=== PATIENT | male | born 1950 | race African-American/Black ===

== ENCOUNTER 2017-03-10 08:39 | Inpatient (IN) | payer OTHER, MEDICARE ==
[~2017-03-10] VITALS: Ht 175.3 cm; Wt 80.5 kg
[~2017-03-10 08:39] MED LIST: HYDR-2768 PO; POTA-243 PO
[2017-03-10 08:41] VITALS: BP 161/88; PULSE 95; RESP 20; TEMP 98.2; O2SAT 93
[2017-03-10 09:10] VITALS: BP 163/86; PULSE 80; RESP 17; TEMP 98; O2SAT 95
[2017-03-10] MEDS ORDERED: SODIUM CHLOR 0.9% 1000 ML INJ 1,000 ML IV SCH (09:14)
[2017-03-10] MEDS ORDERED: SODIUM CHLORIDE 0.9% FLUSH 10 ML FLUSH IV FLUSH PRN ×2 (09:15→13:00)
--- NOTE | 2017-03-10 09:51 | PD ---
HPI Chief Complaint: GI Complaint Time Seen by Provider: 09:14 Travel History International Travel<30 days: No Contact w/Intl Traveler<30days: No Traveled to known affect area: No History of Present Illness HPI 66 year old male presenting with watery diarrhea x 3 days. He also has some fecal incontinence at night. Associated symptoms include mild nausea, headache, weakness, and occasional dysuria. He denies fever, vomiting, blood in the stool , melena, abdominal pain. He takes Metformin for DM, HCTZ for HTN, and started taking a statin last week for hypercholesterolemia. No sick contacts with similar symptoms. PFSH Past Medical History Arthritis: Yes High Cholesterol: Yes Diabetes: Yes Patient Takes Glucophage: No Diminished Hearing: No Hypertension: Yes Respiratory: Yes (BRONCHITIS) Past Surgical History Abdominal Surgery: Yes (bladder surgery?) Social History Alcohol Use: Yes ("every now and then") Tobacco Use: No Substance Use: No Allergies-Medications (Allergen,Severity, Reaction): Coded Allergies: No Known Allergies (Verified , 03/10/17) Reported Meds & Prescriptions Reported Meds & Active Scripts Active Reported Flomax (Tamsulosin HCl) 0.4 Mg Cap 0.4 Mg PO HS Zoloft (Sertraline HCl) 50 Mg Tab 50 Mg PO DAILY Lasix (Furosemide) 40 Mg Tab 40 Mg PO DAILY Lisinopril 20 Mg Tab 20 Mg PO DAILY Gabapentin 300 Mg Cap 300 Mg PO TID Lipitor (Atorvastatin Calcium) 80 Mg Tab 80 Mg PO DAILY PRN Metformin HCTZ Review of Systems Except as stated in HPI: all other systems reviewed are Neg General / Constitutional: No: Fever, Chills HENT: Positive: Headaches Cardiovascular: No: Chest Pain or Discomfort Respiratory: No: Cough, Shortness of Breath Gastrointestinal: Positive: Nausea, Diarrhea, No: Vomiting, Abdominal Pain, Hematemesis, Hematochezia, Constipation Genitourinary: Positive: Dysuria Musculoskeletal: No: Pain Skin: No Rash Neurologic: Positive: Weakness Physical Exam Narrative GENERAL: WD/WN in nad. SKIN: Warm and dry. Skin tenting on hands. HEAD: Atraumatic. Normocephalic. EYES: Pupils equal and round. No scleral icterus. No injection or drainage. ENT: No nasal bleeding or discharge. Mucous membranes pink and moist. NECK: Trachea midline. No JVD. CARDIOVASCULAR: Regular rate and rhythm. RESPIRATORY: No accessory muscle use. Clear to auscultation. Breath sounds equal bilaterally. GASTROINTESTINAL: Abdomen soft, non-tender, nondistended. Hepatic and splenic margins not palpable. MUSCULOSKELETAL: Extremities without clubbing, cyanosis, or edema. No obvious deformities. NEUROLOGICAL: Awake and alert. No obvious cranial nerve deficits. Motor grossly within normal limits. Five out of 5 muscle strength in the arms and legs. Normal speech. PSYCHIATRIC: Appropriate mood and affect; insight and judgment normal. Data Data Last Documented VS Vital Signs Date Time Temp Pulse Resp B/P Pulse Ox O2 Delivery O2 Flow Rate FiO2 03/10/17 11:50 81 153/88 03/10/17 09:10 98.0 17 95 Room Air Orders Complete Blood Count With Diff (03/10/17 09:14) Comprehensive Metabolic Panel (03/10/17 09:14) Iv Access Insert/Monitor (03/10/17 09:14) Ecg Monitoring (03/10/17 09:14) Oximetry (03/10/17 09:14) Sodium Chlor 0.9% 1000 Ml Inj (Ns 1000 M (03/10/17 09:14) Sodium Chloride 0.9% Flush (Ns Flush) (03/10/17 09:15) Electrocardiogram (03/10/17 09:19) Calcium Gluconate Inj (Calcium Gluconate (03/10/17 12:15) Admit To Inpatient (03/10/17 ) Vital Signs (Adult) Q4H (03/10/17 12:48) Activity Bed Rest With Brp (03/10/17 12:48) Bedside Glucose ADELINA.AC&HS (03/10/17 12:48) Intake + Output ADELINA.QSHIFT (03/10/17 12:48) Sodium Chlor 0.9% 1000 Ml Inj (Ns 1000 M (03/10/17 13:00) Sodium Chloride 0.9% Flush (Ns Flush) (03/10/17 13:00) Sodium Chloride 0.9% Flush (Ns Flush) (03/10/17 21:00) Acetaminophen (Tylenol) (03/10/17 13:00) Ondansetron Inj (Zofran Inj) (03/10/17 13:00) Temazepam (Restoril) (03/10/17 13:00) Basic Metabolic Panel (Bmp) (03/11/17 06:00) Complete Blood Count With Diff (03/11/17 06:00) Hepatic Functional Panel (03/11/17 06:00) Pt Request For Service (03/10/17 12:48) Heparin Inj (Heparin Inj) (03/10/17 14:00) Naloxone Inj (Narcan Inj) (03/10/17 13:00) Stool Wbc (Leukocytes) (03/10/17 12:48) C Diff Toxin Pcr (03/10/17 12:48) Rotavirus Ag Detection (Stool) (03/10/17 12:48) Occult Blood (Hemoccult) Stool (03/10/17 12:48) Specimen To Be Collected PRN (03/10/17 12:48) Enteric Path (Stool) (03/10/17 12:48) Isolation ADELINA.QSHIFT (03/10/17 12:48) Admit Order (Ed Use Only) (03/10/17 ) Labs Laboratory Tests Test 03/10/17 03/10/17 09:20 10:13 White Blood Count 6.0 TH/MM3 Red Blood Count 5.56 MIL/MM3 Hemoglobin 14.5 GM/DL Hematocrit 45.9 % Mean Corpuscular Volume 82.5 FL Mean Corpuscular Hemoglobin 26.0 PG Mean Corpuscular Hemoglobin 31.6 % Concent Red Cell Distribution Width 16.2 % Platelet Count 139 TH/MM3 Mean Platelet Volume 9.7 FL Neutrophils (%) (Auto) 53.9 % Lymphocytes (%) (Auto) 31.2 % Monocytes (%) (Auto) 11.2 % Eosinophils (%) (Auto) 3.3 % Basophils (%) (Auto) 0.4 % Neutrophils # (Auto) 3.3 TH/MM3 Lymphocytes # (Auto) 1.9 TH/MM3 Monocytes # (Auto) 0.7 TH/MM3 Eosinophils # (Auto) 0.2 TH/MM3 Basophils # (Auto) 0.0 TH/MM3 CBC Comment DIFF FINAL Differential Comment Sodium Level 138 MEQ/L Potassium Level 5.9 MEQ/L Chloride Level 108 MEQ/L Carbon Dioxide Level 24.3 MEQ/L Anion Gap 6 MEQ/L Blood Urea Nitrogen 34 MG/DL Creatinine 2.63 MG/DL Estimat Glomerular Filtration 30 ML/MIN Rate Random Glucose 95 MG/DL Calcium Level 8.3 MG/DL Total Bilirubin 0.6 MG/DL Aspartate Amino Transf 24 U/L (AST/SGOT) Alanine Aminotransferase 36 U/L (ALT/SGPT) Alkaline Phosphatase 86 U/L Total Protein 8.9 GM/DL Albumin 3.8 GM/DL [facility] Medical Decision Making Medical Screen Exam Complete: Yes Emergency Medical Condition: Yes Differential Diagnosis Dehydration and hyperkalemia, infectious diarrhea, medication diarrhea, acute kidney injury, acute abdomen excluded clinically. Narrative Course Patient roomed emergency department, laboratory workup significant for hypokalemia to 5.9, acute kidney injury with creatinine elevated, being 1 elevated, likely causes volume contraction, was given normal saline, EKG shows no changes consistent with hyperkalemia, was given calcium gluconate, will hold Kayexalate given he is having diarrhea and hydrate with IV saline and reassess as an observation patient. Discussed with hospitalist who agrees for admission. Diagnosis Primary Impression: Hyperkalemia Additional Impression: Acute kidney injury Admitting Information Admitting Physician Requests: Admit Condition: Stable Bruno Garcia MD Mar 10, 2017 09:51
[2017-03-10 09:54] LABS: AUTOMATED NEUTROPHIL # 3.3 TH/MM3 (1.8-7.7); BASOPHIL % 0.4 % (0.0-2.0); EOSINOPHIL # 0.2 TH/MM3 (0-0.4); EOSINOPHIL % 3.3 % (0.0-4.0); HEMATOCRIT 45.9 % (39.0-51.0); HEMO FLAGS DIFF FINAL; LYMPH % 31.2 % (9.0-44.0); LYMPHOCYTE # 1.9 TH/MM3 (1.0-4.8); MEAN CELL VOLUME 82.5 FL (80.0-100.0); MEAN CORPUSCULAR HGB CONC 31.6 % (32.0-36.0); MONO % 11.2 % (0.0-8.0); NEUT % 53.9 % (16.0-70.0); PLATELET COUNT 139 TH/MM3 (150-450); RED BLOOD COUNT 5.56 MIL/MM3 (4.50-5.90); RED CELL DISTRIBUTION WIDTH 16.2 % (11.6-17.2)
[2017-03-10 10:07] LABS: ALKALINE PHOSPHATASE 86 U/L (45-117); TOTAL BILIRUBIN ADULT 0.6 MG/DL (0.2-1.0)
[2017-03-10] MEDS ORDERED: LISI-515 PO (10:39)
[2017-03-10] MEDS ORDERED: TAMS5CAP PO (10:39)
[2017-03-10] MEDS ORDERED: GABA300C5 PO (10:39)
[2017-03-10] MEDS ORDERED: ZOLO50TA PO (10:39)
[2017-03-10] MEDS ORDERED: FURO1TAB60 PO (10:39)
[2017-03-10] MEDS ORDERED: LIPI80TA PO (10:39)
[2017-03-10 10:57] LABS: ANION GAP 6 MEQ/L (5-15); AST (GOT) 24 U/L (15-37); BICARBONATE 24.3 MEQ/L (21.0-32.0); BLOOD UREA NITROGEN 34 MG/DL (7-18); CHLORIDE 108 MEQ/L (98-107); GLOMERULAR FILTRATION RATE 30 ML/MIN (>89); POTASSIUM 5.9 MEQ/L (3.5-5.1); SODIUM (NA) 138 MEQ/L (136-145)
[2017-03-10 10:58] LABS: ALT (GPT) 36 U/L (12-78)
[2017-03-10 11:50] VITALS: BP 153/88; PULSE 81
[2017-03-10] MEDS ORDERED: CALCIUM GLUCONATE INJ 1 GM in DEXTROSE 5% IN WATER 100ML INJ 100 ML IV ONE ×2 (12:15)
--- NOTE | 2017-03-10 12:33 | EKG ---
Date Performed: 03/10/2017 Time Performed: 09:19:04 PTAGE: 66 years EKG: Sinus rhythm BORDERLINE LEFT AXIS DEVIATION NONSPECIFIC T-WAVE ABNORMALITY Compared to prior tracing no significa nt change BORDERLINE ECG PREVIOUS TRACING : 05/15/2012 14.20 DOCTOR: Ethan Patel Interpretating Date/Time 03/10/2017 12:32:04
[2017-03-10] MEDS ORDERED: ONDANSETRON HCL 4 MG/2 ML VIAL IVP PRN (13:00)
[2017-03-10] MEDS ORDERED: NALOXONE HCL 0.4 MG/ML AMP IV PRN (13:00)
[2017-03-10] MEDS: HEPARIN SODIUM - SQ 10,000 UNITS/ML VIAL SQ SCH ×2 (14:48→21:13)
[2017-03-10] MEDS: SODIUM CHLOR 0.9% 1000 ML INJ 1,000 ML IV SCH ×2 (14:49→21:00)
[2017-03-10 15:40] VITALS: BP 177/87; PULSE 80; RESP 20; TEMP 98.2; O2SAT 96
[2017-03-10 17:48] LABS: C. DIFF EPI 027 PRESUMPTIVE NEGATIVE (NEGATIVE); C. DIFF TOXIN PCR NEGATIVE (NEGATIVE)
[2017-03-10] MEDS: cloNIDine HCL 0.1 MG TAB PO PRN (18:04)
[2017-03-10] MEDS ORDERED: GLUCAGON 1 MG/ML VIAL OTHER PRN (18:15)
[2017-03-10] MEDS ORDERED: DEXTROSE 50% IN WATER 50 ML VIAL(D50) IV PRN (18:15)
--- NOTE | 2017-03-10 18:26 | HHI.HP ---
HPI Service [facility] Hospitalists Primary Care Physician Trever Mcgarry MD Admission Diagnosis Hyperkalemia, KRISTI Diagnoses: Chief Complaint: Diarrhea Weakness Nausea Travel History International Travel<30 Days: No Contact w/Intl Traveler <30 Da: No Traveled to Known Affected Are: No History of Present Illness This is a 66-year-old male with past medical history significant for hypertension, diabetes, chronic kidney disease stage III, dyslipidemia, BPH and osteoarthritis who presented to [facility] ED with complaints of three-day history of watery diarrhea, nausea and fatigue/weakness. Patient is somewhat of a poor historian and is not sure of the medications that he takes or the dosages. Patient denies any associated vomiting or abdominal pain. He reports 10+ episodes of diarrhea daily. Patient denies any blood or mucus in the stool. He also denies any dark or tarry stools. He endorses a good appetite. He reports some dysuria 56 days ago but this has resolved. Patient admits to confusion with his medications and is not sure if he's been taking his home medications as prescribed. He endorses eating 3-5 bananas daily for the past several days. He denies any fever or chills. He denies any chest pain or palpitations. He denies any shortness of breath. He denies any dietary changes. He denies any recent travel or ill contacts. Patient states that he has had 3 or 4 episodes in the past year where he has several days of watery diarrhea with associated nausea and vomiting. He has not been seen by a GI in the past. He currently sees Dr. Garcia for his CKD. In the ED, she was found to be hyperkalemic with a potassium level of 5.9. Creatinine is elevated at 2.63 and patient is unaware of his baseline creatinine. He is afebrile. C diff is negative. Review of Systems Except as stated in HPI: all other systems reviewed are Neg Past Family Social History Past Medical History Hypertension Diabetes Dyslipidemia Chronic kidney disease stage III Osteoarthritis BPH Past Surgical History ORIF left ankle fracture Bladder surgery Reported Medications Metformin HCTZ Lipitor 80mg po daily Flomax 0.4mg po daily Lisinopril 20mg po daily Gabapentin 300mg po TID Zoloft 50mg po daily Lasix 50mg po daily Allergies: Coded Allergies: No Known Allergies (Verified , 03/10/17) Active Ordered Medications Current Medications Medications (Trade) Dose Ordered Sig/Mikey Route Start Time Stop Time Status Last Admin (NS 1000 ml Inj) 1,000 ml @ 125 mls/hr Q8H IV 03/10/17 13:00 03/10/17 14:49 (NS Flush) 2 ml UNSCH PRN IV FLUSH 03/10/17 13:00 (NS Flush) 2 ml BID IV FLUSH 03/10/17 21:00 (Tylenol) 650 mg Q4H PRN PO 03/10/17 13:00 (Zofran Inj) 4 mg Q6H PRN IVP 03/10/17 13:00 (Restoril) 15 mg HS PRN PO 03/10/17 13:00 (Heparin Inj) 5,000 units Q8H SQ 03/10/17 14:00 03/10/17 14:48 (Narcan Inj) 0.4 mg UNSCH PRN IV 03/10/17 13:00 (Catapres) 0.1 mg Q6H PRN PO 03/10/17 17:45 Family History Diabetes Hypertension Brother, CAD, CABG Social History Patient has a history of tobacco use of a half pack per day for 20 years but quit 7 years ago. He reports occasional alcohol consumption. He denies any illicit drug use. Patient is single. Lives with his brother. He is retired from concrete work. Physical Exam Vital Signs Vital Signs Date Time Temp Pulse Resp B/P Pulse Ox O2 Delivery O2 Flow Rate FiO2 03/10/17 15:40 98.2 80 20 177/87 96 03/10/17 11:50 81 153/88 03/10/17 09:10 98.0 80 17 163/86 95 Room Air 03/10/17 08:41 98.2 95 20 161/88 93 Room Air Physical Exam GENERAL: This is a well-nourished, well-developed patient, in no apparent distress. Awake and alert. Sitting up in hospital bed. SKIN: No rashes, ecchymoses or lesions. Cool and dry. HEAD: Atraumatic. Normocephalic. No temporal or scalp tenderness. EYES: Pupils equal round and reactive. Extraocular motions intact. No scleral icterus. No injection or drainage. ENT: Nose without bleeding, purulent drainage or septal hematoma. Throat without erythema, tonsillar hypertrophy or exudate. Uvula midline. Airway patent. NECK: Trachea midline. No lymphadenopathy. Supple, nontender, no meningeal signs. CARDIOVASCULAR: Regular rate and rhythm without murmurs, gallops, or rubs. RESPIRATORY: Clear to auscultation. Breath sounds equal bilaterally. No wheezes , rales, or rhonchi. GASTROINTESTINAL: Abdomen soft, non-tender, nondistended. No hepato-splenomegaly , or palpable masses. No guarding. MUSCULOSKELETAL: Extremities without clubbing, cyanosis, or edema. No joint tenderness, effusion, or edema noted. No calf tenderness. NEUROLOGICAL: Awake and alert. Able to move all extremities. No focal neurologic deficit appreciated. Normal speech. Laboratory Laboratory Tests Test 03/10/17 03/10/17 03/10/17 09:20 10:13 16:00 White Blood Count 6.0 Red Blood Count 5.56 Hemoglobin 14.5 Hematocrit 45.9 Mean Corpuscular Volume 82.5 Mean Corpuscular Hemoglobin 26.0 Mean Corpuscular Hemoglobin 31.6 Concent Red Cell Distribution Width 16.2 Platelet Count 139 Mean Platelet Volume 9.7 Neutrophils (%) (Auto) 53.9 Lymphocytes (%) (Auto) 31.2 Monocytes (%) (Auto) 11.2 Eosinophils (%) (Auto) 3.3 Basophils (%) (Auto) 0.4 Neutrophils # (Auto) 3.3 Lymphocytes # (Auto) 1.9 Monocytes # (Auto) 0.7 Eosinophils # (Auto) 0.2 Basophils # (Auto) 0.0 CBC Comment DIFF FINAL Differential Comment Sodium Level 138 Potassium Level 5.9 Chloride Level 108 Carbon Dioxide Level 24.3 Anion Gap 6 Blood Urea Nitrogen 34 Creatinine 2.63 Estimat Glomerular Filtration 30 Rate Random Glucose 95 Calcium Level 8.3 Total Bilirubin 0.6 Aspartate Amino Transf 24 (AST/SGOT) Alanine Aminotransferase 36 (ALT/SGPT) Alkaline Phosphatase 86 Total Protein 8.9 Albumin 3.8 Stool C. difficile Toxin (PCR) NEGATIVE Stl C. difficile Toxin PRESUMPTIVE Epiderm 027 NEGATIVE Date/Time Procedure Status Source Growth 03/10/17 16:00 Stool Pus (KEVIN) Resulted Stool Stool Pending 03/10/17 16:00 Stool Occult Blood (KEVIN) - Final Resulted Stool Stool HEMOCCULT NEGATIVE 03/10/17 16:00 Rotavirus Antigen - Final Complete Stool Stool NEGATIVE - ROTAVIRUS ANTIGEN IS ABSEN... 03/10/17 16:00 Received Stool Stool Pending Result Diagram: 03/10/17 0920 03/10/17 1013 Assessment and Plan Assessment and Plan 66-year-old male with past medical history significant for hypertension, diabetes, chronic kidney disease stage III, dyslipidemia, BPH and osteoarthritis who presented to [facility] ED with complaints of three-day history of watery diarrhea, nausea and fatigue/weakness. Diarrhea and nausea - uncertain etiology ?gastroenteritis ?metformin induced - patient recently started on medication a few weeks ago - C diff negative - Hemoccult negative - Rotavirus antigen negative - Follow up on remainder stool studies - supportive care - Zofran prn nausea/vomiting - monitor Hyperkalemia - Possibly due to medication noncompliance. Patient states he may be taking too much of certain medications and not enough of others. Also patient endorses he's been eating 3-5 bananas daily for the past several days. - Treated with calcium in the ED - K 5.9. Obtain repeat level - low K diet - hold Lisinopril for now - am labs ordered Possible KRISTI on CKD stage 3 - creatinine 2.63, unknown creatinine baseline - Avoid nephrotoxic agent - Hold ACEI and HCTZ - Suspect some component due to hypovolemia/low renal perfusion - IV fluid hydration - Repeat BMP in a.m. to monitor trend Hypertension Hyperlipidemia - BP elevated - Hold Lisinopril and HCTZ - begin Nifedipine XL 30mg daily - Clonidine prn with parameters - continue home medication with Lipitor 80mg daily DM - Patient recently started on metformin a few weeks ago. Patient unsure of the dose. - hold Metformin - obtain Hgb A1c - accuchecks and ISS Dysuria - intermittent - obtain UA BPH - continue home medication with Flomax DVT prophylaxis - Heparin sq Discussed with patient, niece, nursing staff and Dr. Dillard Attestation Patient seen and examined with Liza Beatty PA-C. The exam, history, and the medical decision-making described in the above note were completed with the assistance of the dictating practitioner. I attest that I had a [id number] encounter with the patient on the same day, and personally performed all of the history, exam, or medical decision making. Discussed case with her thoroughly after seeing the patient, reviewed and agreed with the plan. Please see addendum in History, Physical examination. See below for any errata/additional input: This is a 66-year-old male with history of hypertension, diabetes, chronic kidney disease stage III, dyslipidemia presenting to the hospital with a three- day history of loose watery diarrhea with nausea, fatigue and associated weakness. Patient is a poor historian. Diarrhea is nonbloody, nonmucoid. Vomitus is nonbloody as well. Good appetite. There is no note of fever,chills , abdominal pain but has dysuria for about one week now. These episodes of been happening to him almost every year with no etiology. Not in distress regular rate and rhythm Clear breath sounds Abdomen soft, nontender No edema. Diarrhea-? Gastroenteritis, C. difficile negative, follow-up stool WBC, other stool studies negative so far, follow-up ovarian parasites. No carotid etiology , possibly gastroenteritis,? Medication induced since patient was recently started on a drug recently, possibly metformin induced? Acute on top of possible chronic renal failure-unknown baseline, continue IVF. Recheck BMP tomorrow. If no improvement, check ultrasound and urinalysis. Hypertension-hold diuretics and lisinopril, agree with nifedipine. Physician Certification 2 Midnight Certification Type: Admission for Inpatient Services Order for Inpatient Services The services are ordered in accordance with Medicare regulations or non- Medicare payer requirements, as applicable. In the case of services not specified as inpatient-only, they are appropriately provided as inpatient services in accordance with the 2-midnight benchmark. Estimated LOS (days): 2 days is the estimated time the patient will need to remain in the hospital, assuming treatment plan goals are met and no additional complications. Post-Hospital Plan: Home Liza Beatty Mar 10, 2017 18:26 Amor Dillard MD Mar 10, 2017 18:34
[2017-03-10] MEDS ORDERED: NIFEdipine 30 MG SUSTAINED RELEASE TAB PO ONE (19:30)
[2017-03-10 20:00] VITALS: BP 161/70; PULSE 70; RESP 16; TEMP 97.9; O2SAT 97
[2017-03-10] MEDS: INSULIN ASPART SUPPLEMENTAL SCALE SQ SCH (21:00)
[2017-03-10] MEDS: ATORVASTATIN 80 MG TAB PO SCH (21:12)
[2017-03-10] MEDS: TAMSULOSIN HCL 0.4 MG CAP PO SCH (21:12)
[2017-03-10] MEDS: TEMAZEPAM 15 MG CAP PO PRN (21:12)
[2017-03-10] MEDS: SODIUM CHLORIDE 0.9% FLUSH 10 ML FLUSH IV FLUSH SCH (21:13)
[2017-03-10 23:00] VITALS: PULSE 72
[2017-03-11] VITALS (8 sets, daily range): BP systolic 120–190; BP diastolic 69–91; PULSE 59–84; RESP 18–20; TEMP 97.7–97.9; O2SAT 97–99
[2017-03-11 00:05] LABS: BLOOD, URINE NEG (NEG); COMMENT (UR) CULT NOT INDICATED; CULTURE IF INDICATED CULT NOT INDICATED; GLUCOSE,URINE NEG (NEG); HYALINE CAST, URINE 3 /lpf (RARE); KETONE, URINE NEG (NEG); NITRITE,URINE NEG (NEG); URINE COLOR LIGHT-YELLOW (YELLW/STRAW)
[2017-03-11] MEDS: SODIUM CHLOR 0.9% 1000 ML INJ 1,000 ML IV SCH ×3 (05:09→21:00)
[2017-03-11] MEDS: INSULIN ASPART SUPPLEMENTAL SCALE SQ SCH ×4 (05:10→21:00)
[2017-03-11] MEDS: HEPARIN SODIUM - SQ 10,000 UNITS/ML VIAL SQ SCH ×3 (05:10→22:01)
[2017-03-11 06:34] LABS: AUTOMATED NEUTROPHIL # 1.8 TH/MM3 (1.8-7.7); BASOPHIL % 0.7 % (0.0-2.0); EOSINOPHIL # 0.2 TH/MM3 (0-0.4); EOSINOPHIL % 4.8 % (0.0-4.0); HEMATOCRIT 41.4 % (39.0-51.0); HEMO FLAGS DIFF FINAL; LYMPH % 43.5 % (9.0-44.0); MEAN CELL VOLUME 81.4 FL (80.0-100.0); MONO % 12.2 % (0.0-8.0); NEUT % 38.8 % (16.0-70.0); PLATELET COUNT 115 TH/MM3 (150-450); RED BLOOD COUNT 5.08 MIL/MM3 (4.50-5.90); RED CELL DISTRIBUTION WIDTH 16.6 % (11.6-17.2); WHITE BLOOD COUNT 4.5 TH/MM3 (4.0-11.0)
[2017-03-11 07:02] LABS: BICARBONATE 19.8 MEQ/L (21.0-32.0); POTASSIUM 5.8 MEQ/L (3.5-5.1)
[2017-03-11 07:05] LABS: INDIRECT BILIRUBIN 0.3 MG/DL (0.0-0.8); TOTAL BILIRUBIN ADULT 0.4 MG/DL (0.2-1.0)
[2017-03-11] MEDS: SERTRALINE HCL 50 MG TAB PO SCH (08:16)
[2017-03-11] MEDS: SODIUM CHLORIDE 0.9% FLUSH 10 ML FLUSH IV FLUSH SCH ×2 (08:17→21:00)
[2017-03-11] MEDS ORDERED: NIFEdipine 30 MG SUSTAINED RELEASE TAB PO SCH (09:00)
[2017-03-11] MEDS ORDERED: SODIUM POLYSTYRENE SULFONATE SUSP 15 GM/60 ML CUP PO ONE (11:30)
--- NOTE | 2017-03-11 12:52 | RADRPT ---
EXAM DATE/TIME: 03/11/2017 11:56 [place] COMPARISON: No previous studies available for comparison. INDICATIONS : Abnormal labs. MEDICAL HISTORY : Hypercholesterolemia. Hypertension. Renal calculi. Arthritis. Diabetes. Bronchitis. Measles. SURGICAL HISTORY : Pins in left leg. ENCOUNTER: Initial ACUITY: 1 day PAIN SCORE: 3/10 LOCATION: Bilateral flank MEASUREMENTS: RIGHT KIDNEY: 6.5 x 3.0 x 3.6 cm LEFT KIDNEY: 10.8 x 5.8 x 5.1 cm FINDINGS: RIGHT KIDNEY: Right kidney is atrophic with diffuse cortical thinning. No significant hydronephrosis or focal mass. LEFT KIDNEY: Renal cortex is normal in thickness and echotexture. No hydronephrosis, stone, or mass. BLADDER: Within normal limits given the degree of distension. CONCLUSION: 1. Atrophic right kidney, likely chronic in etiology, due to sequela of chronic ischemia versus prio r insults. 2. No evidence for obstructive uropathy. Lukas Ignacio MD on March 11, 2017 at 12:47 Board Certified Radiologist. This report was verified electronically.
--- NOTE | 2017-03-11 12:55 | HHI.PR ---
Subjective Remarks Her gastroenteritis and acute renal failure Patient stated he feels fatigued but feels a lot better. Denied any chest pain , palpitation, lightheaded or dizziness. He has no other complaints. Objective Vitals Vital Signs Date Time Temp Pulse Resp B/P Pulse Ox O2 Delivery O2 Flow Rate FiO2 03/11/17 08:00 97.8 59 18 139/75 98 03/11/17 04:00 97.7 72 18 120/69 99 03/11/17 00:00 97.7 69 18 138/91 97 03/10/17 23:00 72 03/10/17 20:00 97.9 70 16 161/70 97 03/10/17 15:40 98.2 80 20 177/87 96 I/O 03/10/17 03/10/17 03/10/17 03/11/17 03/11/17 03/11/17 07:00 15:00 23:00 07:00 15:00 23:00 Intake Total 1670 ml 1023 ml Output Total 300 ml Balance 1670 ml 723 ml Intake Oral 960 ml 240 ml IV Total 710 ml 783 ml Output Urine Total 300 ml # Voids 3 # Bowel Movements 1 Result Diagram: 03/11/17 0500 03/11/17 0500 Objective Remarks GENERAL: in NAD SKIN: Warm and dry. HEAD: Normocephalic. EYES: No scleral icterus. No injection or drainage. NECK: Supple, trachea midline. No JVD or lymphadenopathy. CARDIOVASCULAR: Regular rate and rhythm without murmurs, gallops, or rubs. RESPIRATORY: Breath sounds equal bilaterally. No accessory muscle use. GASTROINTESTINAL: Abdomen soft, non-tender, nondistended. MUSCULOSKELETAL: No cyanosis, or edema. BACK: Nontender without obvious deformity. No CVA tenderness. Medications and IVs Current Medications Sodium Chloride (NS 1000 ml Inj) 1,000 ml @ 1,000 mls/hr Q1H IV Last administered on 03/10/17t 09:30; Start 03/10/17 at 09:14; Stop 03/10/17 at 10:13 ; Status DC Sodium Chloride 2 ml 2 ml UNSCH PRN IV FLUSH FLUSH AFTER USING IV ACCESS; Start 03/10/17 at 09:15; Stop 03/10/17 at 13:15; Status DC Calcium Gluconate 1 gm/Dextrose 110 ml @ 110 mls/hr ONCE ONCE IV Last administered on 03/10/17 14:49; Start 03/10/17 at 12:15; Stop 03/10/17 at 13:14 ; Status DC Sodium Chloride (NS 1000 ml Inj) 1,000 ml @ 125 mls/hr Q8H IV Last administered on 03/11/17 05:09; Start 03/10/17 at 13:00 Sodium Chloride (NS Flush) 2 ml UNSCH PRN IV FLUSH FLUSH AFTER USING IV ACCESS ; Start 03/10/17 at 13:00 Sodium Chloride (NS Flush) 2 ml BID IV FLUSH Last administered on 03/10/17 21: 13; Start 03/10/17 at 21:00 Acetaminophen (Tylenol) 650 mg Q4H PRN PO TEMP > 100.4; Start 03/10/17 at 13:00 Ondansetron HCl (Zofran Inj) 4 mg Q6H PRN IVP NAUSEA OR VOMITING; Start at 13:00 Temazepam (Restoril) 15 mg HS PRN PO INSOMNIA Last administered on 03/10/17 21 :12; Start 03/10/17 at 13:00 Heparin Sodium (Porcine) (Heparin Inj) 5,000 units Q8H SQ Last administered on 03/11/17 05:10; Start 03/10/17 at 14:00 Naloxone HCl (Narcan Inj) 0.4 mg UNSCH PRN IV SEE LABEL COMMENTS; Start at 13:00 Clonidine (Catapres) 0.1 mg Q6H PRN PO sbp>160 Last administered on 03/10/17 18:04; Start 03/10/17 at 17:45 Dextrose (D50w (Vial) Inj) 50 ml UNSCH PRN IV HYPOGLYCEMIA-SEE COMMENTS; Start 03/10/17 at 18:15 Glucagon (Glucagon Inj) 1 mg UNSCH PRN OTHER HYPOGLYCEMIA-SEE COMMENTS; Start 03/10/17 at 18:15 Insulin Aspart (NovoLOG SUPPLEMENTAL SCALE) 1 ACHS SLIDING SCALE SQ ; Start at 21:00 Atorvastatin Calcium (Lipitor) 80 mg HS PO Last administered on 03/10/17 21:12 ; Start 03/10/17 at 21:00 Sertraline HCl (Zoloft) 50 mg DAILY PO Last administered on 03/11/17 08:16; Start 03/11/17 at 09:00 Tamsulosin HCl (Flomax) 0.4 mg HS PO Last administered on 03/10/17 21:12; Start 03/10/17 at 21:00 Nifedipine (Procardia Xl) 30 mg ONCE ONCE PO Last administered on 03/10/17 21 :13; Start 03/10/17 at 19:30; Stop 03/10/17 at 19:31; Status DC Nifedipine (Procardia Xl) 30 mg DAILY PO Last administered on 03/11/17 08:16; Start 03/11/17 at 09:00 Sodium Polystyrene Sulfonate (Kayexalate Liq) 15 gm ONCE ONCE PO Last administered on 03/11/17 11:37; Start 03/11/17 at 11:30; Stop 03/11/17 at 11:31 ; Status DC A/P Assessment and Plan 66-year-old male with past medical history significant for hypertension, diabetes, chronic kidney disease stage III, dyslipidemia, BPH and osteoarthritis who presented to [facility] ED with complaints of three-day history of watery diarrhea, nausea and fatigue/weakness. Diarrhea and nausea, resolved. - uncertain etiology ?gastroenteritis ?metformin induced - patient recently started on medication a few weeks ago - C diff negative, Hemoccult negative, Rotavirus antigen negative. Cultures are negative. - Zofran prn nausea/vomiting Hyperkalemia - Possibly due to medication noncompliance. -Most likely secondary to renal failure. Continues to be hypokalemic. We' ll give another dose of Kayexalate recheck potassium later this afternoon. No events over monitor. -Continue to trend. KRISTI -Unknown if patient has a underlining chronic kidney disease. - creatinine 2.63 and improving. - Avoid nephrotoxic agent - Hold ACEI and HCTZ -Most likely secondary to dehydration. Continue to monitor threatening. Strict ins and outs. We'll get a renal ultrasound. Hypertension Hyperlipidemia - Hold Lisinopril and HCTZ -on Nifedipine XL 30mg daily - Clonidine prn with parameters - continue home medication with Lipitor 80mg daily DM - Patient recently started on metformin a few weeks ago. Patient unsure of the dose. - hold Metformin - obtain Hgb A1c - accuchecks and ISS BPH - continue home medication with Flomax DVT prophylaxis - Heparin sq Discharge Planning Patient requires continued hospitalization due to hyperkalemia secondary to acute renal insufficiency. Liz Mitchell MD Mar 11, 2017 12:55
[2017-03-11] MEDS: ACETAMINOPHEN 325 MG TAB PO PRN (15:33)
[2017-03-11] MEDS: cloNIDine HCL 0.1 MG TAB PO PRN (15:45)
[2017-03-11 16:59] LABS: HEMOGLOBIN A1a 1.1 %; HEMOGLOBIN Ao 84.5 %; HEMOGLOBIN LA1C 1.4 %; HEMOGLOBIN P3 3.9 %
[2017-03-11] MEDS: TAMSULOSIN HCL 0.4 MG CAP PO SCH (22:01)
[2017-03-11] MEDS: TEMAZEPAM 15 MG CAP PO PRN (22:01)
[2017-03-11] MEDS: NIFEdipine 30 MG SUSTAINED RELEASE TAB PO SCH (22:01)
[2017-03-11] MEDS: ATORVASTATIN 80 MG TAB PO SCH (22:02)
[2017-03-12] VITALS (7 sets, daily range): BP systolic 144–179; BP diastolic 70–96; PULSE 68–82; RESP 17–20; TEMP 97.7–98.3; O2SAT 93–97
[2017-03-12] MEDS: SODIUM CHLOR 0.9% 1000 ML INJ 1,000 ML IV SCH (05:00)
[2017-03-12] MEDS: HEPARIN SODIUM - SQ 10,000 UNITS/ML VIAL SQ SCH ×3 (06:02→20:46)
[2017-03-12] MEDS: INSULIN ASPART SUPPLEMENTAL SCALE SQ SCH ×4 (06:02→20:46)
[2017-03-12 06:53] LABS: HEMATOCRIT 43.1 % (39.0-51.0); MEAN CELL VOLUME 81.7 FL (80.0-100.0); MEAN CORPUSCULAR HEMOGLOBIN 25.8 PG (27.0-34.0); MEAN CORPUSCULAR HGB CONC 31.6 % (32.0-36.0); PLATELET COUNT 133 TH/MM3 (150-450); RED BLOOD COUNT 5.27 MIL/MM3 (4.50-5.90); RED CELL DISTRIBUTION WIDTH 15.9 % (11.6-17.2); REVIEW FLAG FINAL; WHITE BLOOD COUNT 3.6 TH/MM3 (4.0-11.0)
[2017-03-12 07:16] LABS: BICARBONATE 23.3 MEQ/L (21.0-32.0); POTASSIUM 4.7 MEQ/L (3.5-5.1)
[2017-03-12] MEDS: NIFEdipine 30 MG SUSTAINED RELEASE TAB PO SCH ×2 (07:49→20:45)
[2017-03-12] MEDS: SERTRALINE HCL 50 MG TAB PO SCH (07:49)
[2017-03-12] MEDS: SODIUM CHLORIDE 0.9% FLUSH 10 ML FLUSH IV FLUSH SCH ×2 (07:54→20:46)
[2017-03-12] MEDS: ACETAMINOPHEN 325 MG TAB PO PRN ×2 (11:39→17:50)
--- NOTE | 2017-03-12 11:53 | HHI.PR ---
Subjective Remarks Follow-up for acute renal failure, diarrhea, uncontrollable pressure Patient stated that he does feel better today. He continues to have some abdominal discomfort but that has improved. Denying nausea vomiting. Continues have diarrhea about 3-4 stools a day. He stated that he continues to have watery diarrhea but is more formed today. Patient is not saving any stools for the nurse to see. Patient nieces at the bedside. Per patient's niece she called his primary care physician and she was told that he was not supposed to be taking metformin. Patient asking to stay for 1 more day. Objective Vitals Vital Signs Date Time Temp Pulse Resp B/P Pulse Ox O2 Delivery O2 Flow Rate FiO2 03/12/17 10:25 72 03/12/17 08:00 98.0 69 18 154/80 96 03/12/17 04:00 98.3 68 17 144/80 97 03/12/17 00:00 97.7 75 20 146/83 93 03/11/17 20:00 84 03/11/17 20:00 97.8 78 20 163/89 99 03/11/17 18:07 180/90 03/11/17 17:44 66 03/11/17 16:00 97.9 70 18 190/88 98 03/11/17 12:00 97.7 66 18 159/81 98 I/O 03/11/17 03/11/17 03/11/17 03/12/17 03/12/17 03/12/17 07:00 15:00 23:00 07:00 15:00 23:00 Intake Total 1023 ml 2094 ml 953 ml 613 ml Output Total 300 ml Balance 723 ml 2094 ml 953 ml 613 ml Intake Oral 240 ml 960 ml 240 ml IV Total 783 ml 1134 ml 713 ml 613 ml Output Urine Total 300 ml # Voids 3 2 # Bowel Movements 1 1 Result Diagram: 03/12/17 0549 03/12/17 0549 Objective Remarks GENERAL: in NAD CARDIOVASCULAR: Regular rate and rhythm without murmurs, gallops, or rubs. RESPIRATORY: Breath sounds equal bilaterally. No accessory muscle use. GASTROINTESTINAL: Abdomen soft, mild diffuse tenderness to palpation, nondistended. Negative for any peritoneal signs. Normoactive bowel sounds. MUSCULOSKELETAL: No cyanosis, or edema. BACK: Nontender without obvious deformity. No CVA tenderness. Medications and IVs Current Medications Sodium Chloride (NS 1000 ml Inj) 1,000 ml @ 1,000 mls/hr Q1H IV Last administered on 03/10/17 09:30; Start 03/10/17 at 09:14; Stop 03/10/17 at 10:13 ; Status DC Sodium Chloride 2 ml 2 ml UNSCH PRN IV FLUSH FLUSH AFTER USING IV ACCESS; Start 03/10/17 at 09:15; Stop 03/10/17 at 13:15; Status DC Calcium Gluconate 1 gm/Dextrose 110 ml @ 110 mls/hr ONCE ONCE IV Last administered on 03/10/17 14:49; Start 03/10/17 at 12:15; Stop 03/10/17 at 13:14 ; Status DC Sodium Chloride (NS 1000 ml Inj) 1,000 ml @ 125 mls/hr Q8H IV Last administered on 03/12/17 05:00; Start 03/10/17 at 13:00 Sodium Chloride (NS Flush) 2 ml UNSCH PRN IV FLUSH FLUSH AFTER USING IV ACCESS ; Start 03/10/17 at 13:00 Sodium Chloride (NS Flush) 2 ml BID IV FLUSH Last administered on 03/10/17 21: 13; Start 03/10/17 at 21:00 Acetaminophen (Tylenol) 650 mg Q4H PRN PO TEMP > 100.4 Last administered on 11:39; Start 03/10/17 at 13:00 Ondansetron HCl (Zofran Inj) 4 mg Q6H PRN IVP NAUSEA OR VOMITING; Start at 13:00 Temazepam (Restoril) 15 mg HS PRN PO INSOMNIA Last administered on 03/11/17 22 :01; Start 03/10/17 at 13:00 Heparin Sodium (Porcine) (Heparin Inj) 5,000 units Q8H SQ Last administered on 03/12/17 06:02; Start 03/10/17 at 14:00 Naloxone HCl (Narcan Inj) 0.4 mg UNSCH PRN IV SEE LABEL COMMENTS; Start at 13:00 Clonidine (Catapres) 0.1 mg Q6H PRN PO sbp>160 Last administered on 03/11/17 15:45; Start 03/10/17 at 17:45 Dextrose (D50w (Vial) Inj) 50 ml UNSCH PRN IV HYPOGLYCEMIA-SEE COMMENTS; Start 03/10/17 at 18:15 Glucagon (Glucagon Inj) 1 mg UNSCH PRN OTHER HYPOGLYCEMIA-SEE COMMENTS; Start 03/10/17 at 18:15 Insulin Aspart (NovoLOG SUPPLEMENTAL SCALE) 1 ACHS SLIDING SCALE SQ ; Start at 21:00 Atorvastatin Calcium (Lipitor) 80 mg HS PO Last administered on 03/11/17 22:02 ; Start 03/10/17 at 21:00 Sertraline HCl (Zoloft) 50 mg DAILY PO Last administered on 03/12/17 07:49; Start 03/11/17 at 09:00 Tamsulosin HCl (Flomax) 0.4 mg HS PO Last administered on 03/11/17 22:01; Start 03/10/17 at 21:00 Nifedipine (Procardia Xl) 30 mg ONCE ONCE PO Last administered on 03/10/17 21 :13; Start 03/10/17 at 19:30; Stop 03/10/17 at 19:31; Status DC Nifedipine (Procardia Xl) 30 mg DAILY PO Last administered on 03/11/17 08:16; Start 03/11/17 at 09:00; Stop 03/11/17 at 18:19; Status DC Sodium Polystyrene Sulfonate (Kayexalate Liq) 15 gm ONCE ONCE PO Last administered on 03/11/17 11:37; Start 03/11/17 at 11:30; Stop 03/11/17 at 11:31 ; Status DC Nifedipine (Procardia Xl) 30 mg BID PO Last administered on 03/12/17 07:49; Start 03/11/17 at 21:00 A/P Assessment and Plan 66-year-old male with past medical history significant for hypertension, diabetes, chronic kidney disease stage III, dyslipidemia, BPH and osteoarthritis who presented to [facility] ED with complaints of three-day history of watery diarrhea, nausea and fatigue/weakness. Abdominal pain and diarrhea - Stool studies are negative. Most likely secondary to vital gastroenteritis versus medication due to metformin. -Continues to have diarrhea but improving. -Will add probiotics and give 1 dose Imodium. We'll continue to monitor clinically. Hyperkalemia - Possibly due to medication noncompliance. -Most likely secondary to renal failure. -Improved with renal function improvement. -At the moment is within normal limits. Continue to monitor. Acute renal failure -Unknown if patient has a underlining chronic kidney disease. - Creatinine continues to improve. - Avoid nephrotoxic agent - Hold ACEI and HCTZ -Most likely secondary to dehydration. Continue to monitor threatening. Strict ins and outs. Renal ultrasound does not show any obstruction. Hypertension Hyperlipidemia - Hold Lisinopril and HCTZ -on Nifedipine XL 30mg twice a day. Will add hydralazine 25 mg by mouth twice a day. - Clonidine prn with parameters - continue home medication with Lipitor 80mg daily DM - Patient recently started on metformin a few weeks ago. Patient unsure of the dose. - Per patient's PCP he was not supposed be on metformin. - Maglinte A1c 6.4. - accuchecks and SSI. BPH - continue home medication with Flomax DVT prophylaxis - Heparin sq Discharge Planning Most likely if he continues to do well he can be discharged tomorrow. Liz Mitchell MD Mar 12, 2017 11:53
[2017-03-12] MEDS ORDERED: LOPERAMIDE HCL 2 MG CAP PO ONE (12:00)
[2017-03-12] MEDS: LACTOBACILLUS ACIDOPHILUS TAB PO SCH ×2 (13:18→17:52)
[2017-03-12] MEDS: hydrALAZINE HCL 25 MG TAB PO SCH ×2 (13:18→20:46)
[2017-03-12 15:36] LABS: POTASSIUM 4.6 MEQ/L (3.5-5.1)
[2017-03-12] MEDS: TEMAZEPAM 15 MG CAP PO PRN (20:45)
[2017-03-12] MEDS: TAMSULOSIN HCL 0.4 MG CAP PO SCH (20:46)
[2017-03-12] MEDS: ATORVASTATIN 80 MG TAB PO SCH (20:46)
[2017-03-13] VITALS: BP 133/72; PULSE 76; RESP 20; TEMP 97.9; O2SAT 95
[2017-03-13 04:00] VITALS: BP 154/78; PULSE 74; RESP 20; TEMP 98; O2SAT 96
[2017-03-13] MEDS: INSULIN ASPART SUPPLEMENTAL SCALE SQ SCH ×2 (06:27→11:00)
[2017-03-13] MEDS: HEPARIN SODIUM - SQ 10,000 UNITS/ML VIAL SQ SCH (06:27)
[2017-03-13 08:00] VITALS: BP 182/91; PULSE 72; PULSE 73; RESP 17; TEMP 97.9; O2SAT 98
[2017-03-13 08:02] LABS: HEMATOCRIT 43.8 % (39.0-51.0); MEAN CELL VOLUME 80.8 FL (80.0-100.0); MEAN CORPUSCULAR HEMOGLOBIN 25.7 PG (27.0-34.0); MEAN CORPUSCULAR HGB CONC 31.9 % (32.0-36.0); PLATELET COUNT 144 TH/MM3 (150-450); RED BLOOD COUNT 5.42 MIL/MM3 (4.50-5.90); RED CELL DISTRIBUTION WIDTH 15.8 % (11.6-17.2); REVIEW FLAG FINAL; WHITE BLOOD COUNT 3.9 TH/MM3 (4.0-11.0)
[2017-03-13] MEDS: LACTOBACILLUS ACIDOPHILUS TAB PO SCH ×2 (09:32→13:17)
[2017-03-13] MEDS: hydrALAZINE HCL 25 MG TAB PO SCH (09:33)
[2017-03-13] MEDS: NIFEdipine 30 MG SUSTAINED RELEASE TAB PO SCH (09:33)
[2017-03-13] MEDS: SODIUM CHLORIDE 0.9% FLUSH 10 ML FLUSH IV FLUSH SCH (09:33)
[2017-03-13] MEDS: SERTRALINE HCL 50 MG TAB PO SCH (09:33)
[2017-03-13] MEDS ORDERED: LACT PO (11:58)
[2017-03-13] MEDS ORDERED: HYDR-3800 PO (11:58)
[2017-03-13] MEDS ORDERED: NIFE30TA8 PO (11:58)
--- NOTE | 2017-03-13 11:59 | HHI.DCPOC ---
Discharge Care Plan Diagnosis: (1) Hyperkalemia (2) Acute kidney injury (3) Hypertension (4) Diarrhea Goals to Promote Your Health * To prevent worsening of your condition and complications * To maintain your health at the optimal level Directions to Meet Your Goals Take your medications as prescribed Follow your dietary instruction Follow activity as directed Keep your appointments as scheduled Take your immunizations and boosters as scheduled If your symptoms worsen call your PCP, if no PCP go to Urgent Care Center or Emergency Room Smoking is Dangerous to Your Health. Avoid second hand smoke Call the 24-hour hour crisis hotline for domestic abuse at Liz Mitchell MD Mar 13, 2017 11:59
[2017-03-13 12:00] VITALS: BP 166/91; PULSE 70; RESP 17; TEMP 98.1; O2SAT 100
--- NOTE | 2017-03-13 12:00 | HHI.DS ---
Discharge Summary Admission Date Mar 10, 2017 at 13:13 Admitting Diagnosis Hyperkalemia, KRISTI Brief History - From Admission This is a 66-year-old male with past medical history significant for hypertension, diabetes, chronic kidney disease stage III, dyslipidemia, BPH and osteoarthritis who presented to [facility] ED with complaints of three-day history of watery diarrhea, nausea and fatigue/weakness. Patient is somewhat of a poor historian and is not sure of the medications that he takes or the dosages. Patient denies any associated vomiting or abdominal pain. He reports 10+ episodes of diarrhea daily. Patient denies any blood or mucus in the stool. He also denies any dark or tarry stools. He endorses a good appetite. He reports some dysuria 56 days ago but this has resolved. Patient admits to confusion with his medications and is not sure if he's been taking his home medications as prescribed. He endorses eating 3-5 bananas daily for the past several days. He denies any fever or chills. He denies any chest pain or palpitations. He denies any shortness of breath. He denies any dietary changes. He denies any recent travel or ill contacts. Patient states that he has had 3 or 4 episodes in the past year where he has several days of watery diarrhea with associated nausea and vomiting. He has not been seen by a GI in the past. He currently sees Dr. Garcia for his CKD. In the ED, she was found to be hyperkalemic with a potassium level of 5.9. Creatinine is elevated at 2.63 and patient is unaware of his baseline creatinine. He is afebrile. C diff is negative. CBC/BMP: 03/13/17 0651 03/12/17 1438 Significant Findings Laboratory Tests Test 03/10/17 03/11/17 03/12/17 03/12/17 23:50 05:00 05:49 14:38 Urine Leukocyte Esterase SMALL (NEG) Mean Corpuscular Hemoglobin 26.0 PG 25.8 PG (27.0-34.0) (27.0-34.0) Platelet Count 115 TH/MM3 133 TH/MM3 (150-450) (150-450) Monocytes (%) (Auto) 12.2 % (0.0-8.0) Eosinophils (%) (Auto) 4.8 % (0.0-4.0) Sodium Level 135 MEQ/L (136-145) Potassium Level 5.8 MEQ/L (3.5-5.1) Chloride Level 109 MEQ/L 110 MEQ/L (98-107) (98-107) Carbon Dioxide Level 19.8 MEQ/L (21.0-32.0) Blood Urea Nitrogen 30 MG/DL (7-18) 19 MG/DL (7-18) Creatinine 1.94 MG/DL 1.41 MG/DL 1.33 MG/DL (0.60-1.30) (0.60-1.30) (0.60-1.30) Estimat Glomerular Filtration 42 ML/MIN (>89) 61 ML/MIN (>89) 65 ML/MIN (>89) Rate White Blood Count 3.6 TH/MM3 (4.0-11.0) Mean Corpuscular Hemoglobin 31.6 % Concent (32.0-36.0) Random Glucose 118 MG/DL (74-106) Test 03/13/17 06:51 White Blood Count 3.9 TH/MM3 (4.0-11.0) Mean Corpuscular Hemoglobin 25.7 PG (27.0-34.0) Mean Corpuscular Hemoglobin 31.9 % Concent (32.0-36.0) Platelet Count 144 TH/MM3 (150-450) PE at Discharge GENERAL: in NAD CARDIOVASCULAR: Regular rate and rhythm without murmurs, gallops, or rubs. RESPIRATORY: Breath sounds equal bilaterally. No accessory muscle use. GASTROINTESTINAL: Abdomen soft, mild diffuse tenderness to palpation, nondistended. Negative for any peritoneal signs. Normoactive bowel sounds. MUSCULOSKELETAL: No cyanosis, or edema. BACK: Nontender without obvious deformity. No CVA tenderness. Pt Condition on Discharge: Good Discharge Disposition: Discharge Home Discharge Instructions DIET: Follow Instructions for: Heart Healthy Diet Activities you can perform: Regular-No Restrictions Liz Mitchell MD Mar 13, 2017 12:00
== END 2017-03-13 13:25 | disposition home or self-care (01) | DRG 394 ==
LOC: NEPE 08:39 → NEDA 13:13 → N04A 15:35
PROVIDERS: ADMIT Family Medicine; ATTEND Family Medicine
DX: K52.1 Toxic gastroenteritis and colitis (principal); N17.9 Acute kidney failure, unspecified; E87.5 Hyperkalemia; E86.0 Dehydration; A08.4 Viral intestinal infection, unspecified; E78.5 Hyperlipidemia, unspecified; M19.90 Unspecified osteoarthritis, unspecified site; N40.0 Benign prostatic hyperplasia without lower urinary tract symptoms; I10 Essential (primary) hypertension; E11.9 Type 2 diabetes mellitus without complications; T38.3X5A Adverse effect of insulin and oral hypoglycemic [antidiabetic] drugs, initial encounter; Z79.84 Long term (current) use of oral hypoglycemic drugs; Z87.891 Personal history of nicotine dependence
CPT/HCPCS: 76775; 80048; 80053; 80076; 81001; 82272; 82948; 83036; 84132; 84443; 85025; 85027; 87205; 87425; 87493; 87506; 93005; 96360; J0610; J1644; J7030